=== PATIENT | female | born 1965 | race Caucasian/White ===

== ENCOUNTER 2017-11-09 03:21 | Outpatient (CLI) | payer OTHER | END 2017-11-09 23:59 | disposition home or self-care (01) | LOC: DIABETIC 03:21 | PROVIDERS: ATTEND Family Medicine | DX: E11.65 Type 2 diabetes mellitus with hyperglycemia (principal) | CPT/HCPCS: G0109 ==

== ENCOUNTER 2017-12-05 04:55 | Outpatient (CLI) | payer OTHER | END 2017-12-05 23:59 | disposition home or self-care (01) | LOC: DIABETIC 04:55 | PROVIDERS: ATTEND Family Medicine | DX: E11.9 Type 2 diabetes mellitus without complications (principal) | CPT/HCPCS: G0108 ==

== ENCOUNTER 2019-08-04 21:25 | Inpatient (IN) | payer OTHER ==
[~2019-08-04] VITALS: Ht 172.7 cm; Wt 83.8 kg
[2019-08-04] MEDS ORDERED: insulin regular, human 100 UNIT in normal saline 100ml IV soln 100 ML IV PRN ×2 (21:45)
[2019-08-04] MEDS ORDERED: proCHLORperazine 10 MG/2 ml inj IV ONE (21:45)
[2019-08-04] MEDS ORDERED: EMPA10TA PO (22:06)
[2019-08-04] MEDS ORDERED: INSU100V9 SQ (22:06)
[2019-08-04] MEDS ORDERED: ATOR10TA87 PO (22:06)
[2019-08-04] MEDS ORDERED: MAGN400C PO (22:06)
[2019-08-04] MEDS ORDERED: HUM7525 SQ (22:06)
[2019-08-04] MEDS ORDERED: TOPI25TA15 PO (22:06)
[2019-08-04] MEDS ORDERED: CHOL100046 PO (22:06)
--- NOTE | 2019-08-04 22:06 | NUR ---
PT AND FAMILY UNSURE OF MEDICATION DOSAGES/FREQUENCIES THAT PT TAKES AT HOME. COMPLETED MED REC ABLE AT THIS TIME.
[2019-08-04] MEDS ORDERED: normal saline 1000ML IV soln IVB ONE (22:10)
[2019-08-04] MEDS ORDERED: insulin regular, human 10 units/0.1 ml syringe IV ONE (22:10)
[2019-08-04] MEDS ORDERED: LORazepam 2 mg/ml vial IV ONE ×2 (22:10→22:40)
[2019-08-04] MEDS ORDERED: diphenhydrAMINE 50 mg/ml inj IV ONE (22:10)
[2019-08-04 22:13] LABS: BASOPHILS # (AUTO) 0.1 X10'3 (0-0.2); BASOPHILS % (AUTO) 0.3 % (0-1); EOSINOPHILS % (AUTO) 0 % (0-6); HEMOGLOBIN 14.1 g/dl (12.0-16.0); LYMPHOCYTES # (AUTO) 1.3 X10'3 (1.1-4.8); LYMPHOCYTES % (AUTO) 5.5 % (21-51); MEAN CORPUSCULAR HEMOGLOBIN 29.3 PG (27.0-31.0); MEAN CORPUSCULAR HGB CONC 32.1 g/dL (33.0-36.5); MEAN CORPUSCULAR VOLUME 91.3 FL (78-98); MEAN PLATELET VOLUME 8.4 FL (7.4-10.4); MONOCYTES # (AUTO) 1.8 X10'3 (0-0.9); MONOCYTES % (AUTO) 7.3 % (2-12); NEUTROPHILS # (AUTO) 21.1 X10'3 (1.8-7.7); NEUTROPHILS % (AUTO) 86.9 % (42-75); PLATELET COUNT 340 X10'3 (140-440); RED BLOOD COUNT 4.81 X10'6 (4.20-5.60); RED CELL DISTRIBUTION WIDTH 12.7 % (11.5-14.5); WHITE BLOOD COUNT 24.3 X10'3 (4.5-11.0)
[2019-08-04 22:15] LABS: ABG BASE EXCESS -24.5 mmol/L (-2.0-3.0); ABG HCO3 3.2 mmol/L (22.0-26.0); ABG OXYGEN SATURATION 98.1 % (95-98); ABG PO2 (T) 130.4 mmHg (83-108); ALLEN'S TEST Positive; FCOHb 0.5 % (0.5-1.5); FMetHb 0.5 % (0.3-1.12); FO2Hb 97.1 % (94-100); RESPIRATORY RATE (OBSERVED) 22 b/min; TOTAL HEMOGLOBIN 14.4 G/dl (12.0-16.0)
[2019-08-04 22:28] LABS: ALANINE AMINOTRANSFERASE 21 U/L (12-78); ALBUMIN 3.7 G/DL (3.4-5.0); ALBUMIN/GLOBULIN RATIO 1.2 (1.1-1.5); ALKALINE PHOSPHATASE 96 IU/L (46-116); ASPARTATE AMINO TRANSFERASE 14 U/L (10-37); BLOOD UREA NITROGEN 20 MG/DL (7-18); BUN/CREATININE RATIO 14.4 (6.6-38.0); CALCIUM 8.8 MG/DL (8.5-10.1); CHLORIDE 105 MMOL/L (99-107); CREATININE 1.39 MG/DL (0.40-0.90); MAGNESIUM 1.8 MG/DL (1.5-2.4); PHOSPHORUS 4.1 MG/DL (2.3-4.5); POTASSIUM 4.8 MMOL/L (3.5-5.1); SODIUM 139 MMOL/L (135-145); TOTAL PROTEIN 6.7 G/DL (6.4-8.2); eGFR 40 ML/MIN
[2019-08-04 22:32] LABS: ANION GAP 29 (8-16)
[2019-08-04 22:35] LABS: GLUCOSE 510 MG/DL (70-104)
[2019-08-04 22:36] LABS: TOTAL CARBON DIOXIDE < 5 MMOL/L (24-32)
[2019-08-04 22:50] LABS: TROPONIN I < 0.04 NG/ML (0.0-0.05)
--- NOTE | 2019-08-04 22:50 | NUR ---
Increased confusion and combativness, pt moved from room 1 to room 3, closer to NS. Dr Mortensen notified and he went to the bedside. MD aware of patients' mottling to her lower extremities. Pt receiving another bolus of NS per MD VO.
[2019-08-04] MEDS ORDERED: vancomycin inj 1,000 MG in normal saline 250ml IV soln 250 ML IV ONE (22:55)
[2019-08-04] MEDS ORDERED: vancomycin/NS 1 GM ADD-VANTAGE 250 ML IV ONE (22:58)
[2019-08-04 23:07] LABS: TOTAL CELLS COUNTED 100
[2019-08-04 23:08] LABS: PLATELET ESTIMATE NORMAL
[2019-08-04] MEDS ORDERED: normal saline 1000ml 1,000 ML IVB ONE (23:08)
--- NOTE | 2019-08-04 23:52 | NUR ---
PT CONTINUES TO BE VERY AGITATED. EYES CLOSED, MOVING HER ARMS AND HER LEGS AND ROLLING HER HEAD BACK AND FORTH WITH KUSSMAUL BREATHING. DR JOSÉ ORDERED K AND IV INSULIN TURNED OFF. SET UP FOR CENTRAL LINE.
[2019-08-04] MEDS: potassium Cl 10 mEq/100mL bag IV SCH (23:58)
[2019-08-05] VITALS (22 sets, daily range): BP systolic 101–141; BP diastolic 55–78
[2019-08-05] MEDS ORDERED: ketamine 50 mg/ml 10ml vial IV STA (00:24)
--- NOTE | 2019-08-05 00:25 | NUR ---
PT FIGHTING MD AND MOVING AND FIGHTING FOR CENTRAL LINE PLACEMENT.
--- NOTE | 2019-08-05 00:27 | NUR ---
DOUBLE CHECKED KETAMINE WITH OLGA SPANGLER RN
--- NOTE | 2019-08-05 00:34 | NUR ---
THE KETAMINE DIDN'T WORK. HOWEVER, THE MD WAS ABLE TO SUCESSFULLY GET THE CL.
[2019-08-05 00:44] LABS: ALANINE AMINOTRANSFERASE 11 U/L (12-78); ALBUMIN 1.6 G/DL (3.4-5.0); ALBUMIN/GLOBULIN RATIO 1.1 (1.1-1.5); ALKALINE PHOSPHATASE 47 IU/L (46-116); ASPARTATE AMINO TRANSFERASE 7 U/L (10-37); BILIRUBIN,TOTAL 0.4 MG/DL (0.1-1.0); BLOOD UREA NITROGEN 10 MG/DL (7-18); BUN/CREATININE RATIO 16.4 (6.6-38.0); CHLORIDE 125 MMOL/L (99-107); CREATININE 0.61 MG/DL (0.40-0.90); GLUCOSE 251 MG/DL (70-104); SODIUM 151 MMOL/L (135-145); eGFR > 90 ML/MIN
[2019-08-05] MEDS ORDERED: ketamine 50 mg/ml 10ml vial IV ONE (01:00)
[2019-08-05 01:01] LABS: POTASSIUM 4.3 MMOL/L (3.5-5.1)
[2019-08-05] MEDS ORDERED: normal saline 1000ml 1,000 ML IV PRN ×2 (01:02→01:05)
--- NOTE | 2019-08-05 01:02 | NUR ---
IN ROOM FOR PROCEDURE FOR MONIQUE
[2019-08-05 01:05] LABS: POTASSIUM 2.2 MMOL/L (3.5-5.1)
[2019-08-05] MEDS ORDERED: MESSAGE TO PHARMACY PO ONE ×2 (01:05→16:45)
[2019-08-05] MEDS ORDERED: acetaminophen 325mg tablet PO PRN (01:05)
[2019-08-05] MEDS ORDERED: dextrose ORAL solution 15 GM/59 ML bottle PO PRN ×4 (01:05→16:45)
[2019-08-05] MEDS ORDERED: insulin Lispro (HumaLOG) vial - multi-dose SQ SCH (01:05)
[2019-08-05] MEDS ORDERED: magnesium 2GM in 50ml NS 50 ML IV PRN (01:05)
[2019-08-05] MEDS ORDERED: sodium phosphate inj. 15 MMOL in dextrose 5%-water 150 ML IV PRN (01:05)
[2019-08-05] MEDS ORDERED: metoclopramide 5 mg/ml inj IV PRN (01:05)
[2019-08-05] MEDS ORDERED: sodium phosphate inj. 30 MMOL in dextrose 5%-water 250 ML IV PRN (01:05)
[2019-08-05] MEDS ORDERED: magnesium 4gm in 100ml NS 100 ML IV PRN (01:05)
[2019-08-05] MEDS ORDERED: dextrose 50%-water 50ml dispensing syringe IV PRN ×5 (01:05→16:45)
[2019-08-05] MEDS ORDERED: magnesium hydroxide 30ml (MOM) UD suspension PO PRN (01:05)
[2019-08-05] MEDS ORDERED: ondansetron/PF 4mg/2ml inj IV PRN (01:05)
[2019-08-05] MEDS ORDERED: glucagon, human recombinant 1mg kit SUBCUT PRN ×2 (01:05→16:45)
[2019-08-05] MEDS ORDERED: acetaminophen 650mg rectal suppository RC PRN (01:05)
[2019-08-05] MEDS ORDERED: ipratropium/albuterol 3ml nebule NEB PRN (01:05)
[2019-08-05] MEDS ORDERED: sodium bicarbonate (8.4%) inj. 75 MEQ in dextrose 5% water 500ml 500 ML IV SCH (01:05)
[2019-08-05 01:06] LABS: ANION GAP 21 (8-16)
[2019-08-05] MEDS ORDERED: ondansetron/PF 4mg/2ml inj IV ONE (01:10)
[2019-08-05] MEDS: potassium Cl 10 mEq/100mL bag IV SCH (01:12)
[2019-08-05 01:13] LABS: CALCIUM < 5.0 MG/DL (8.5-10.1); TOTAL CARBON DIOXIDE < 5 MMOL/L (24-32)
[2019-08-05 01:14] LABS: MAGNESIUM 0.8 MG/DL (1.5-2.4)
[2019-08-05] MEDS ORDERED: calcium chloride inj. 1,000 MG in normal saline 100ml IV soln 100 ML IV ONE (01:30)
[2019-08-05] MEDS ORDERED: magnesium 4gm in 100ml NS 100 ML IV ONE (01:30)
[2019-08-05] MEDS ORDERED: LORazepam 2 mg/ml vial IV ONE (01:45)
--- NOTE | 2019-08-05 01:45 | NUR ---
I have received report from Jeanne, ED RN and had the opportunity to ask questions and assume patient care.
[2019-08-05] MEDS ORDERED: sodium bicarbonate (8.4%) inj. 50 MEQ in dextrose 5% water 500ml 250 ML IV PRN (01:47)
[2019-08-05] MEDS ORDERED: potassium CL 20mEq in D5-1/2NS 1,000 ML IV PRN (01:47)
[2019-08-05] MEDS ORDERED: sodium bicarbonate (8.4%) inj. 100 MEQ in dextrose 5% water 500ml 500 ML IV PRN (01:47)
[2019-08-05 01:48] LABS: HEMOGLOBIN A1C 8.5 % (4.5-6.2)
[2019-08-05] MEDS ORDERED: insulin Lispro (HumaLOG) vial - multi-dose SQ PRN (01:50)
[2019-08-05] MEDS ORDERED: insulin regular, human 100 UNIT in normal saline 100ml IV soln 99 ML IV SCH ×2 (01:50)
[2019-08-05 01:56] LABS: CLARITY,URINE SLIGHTLY CLOUDY (Clear); COLOR,URINE YELLOW (Yellow); GLUCOSE, URINE 500 mg/dl (Neg); KETONES,URINE >=80 mg/dl (Neg); LEUKOCYTE ESTERASE ,URINE NEGATIVE (Neg); NITRITES, URINE NEGATIVE (Neg); OCCULT BLOOD,URINE MODERATE (Neg); PH,URINE 5.5 (4.8-8.0); PROTEIN,URINE 30 mg/dl (Neg); UROBILINOGEN,URINE 0.2 E.U/dL (0.2-1.0)
[2019-08-05 01:58] LABS: UA COLLECTION TYPE FOLEY CATH
[2019-08-05 02:03] LABS: BACTERIA,URINE FEW /HPF (Neg); COARSE GRANULAR CAST 0-3 /LPF (NEGATIVE); RBC,URINE 0-2 /HPF (0-2); SQUAMOUS EPITHELIAL CELL,UR FEW /LPF (FEW); WBC,URINE NONE SEEN /HPF (0-4)
[2019-08-05 02:06] LABS: URINE AMPHETAMINE SCREEN NEGATIVE (Neg); URINE BARBITUATE SCREEN NEGATIVE (Neg); URINE BENZODIAZEPINES SCREEN NEGATIVE (Neg); URINE CANNABINOID SCREEN NEGATIVE (Neg); URINE COCAINE SCREEN NEGATIVE (Neg); URINE METHADONE SCREEN NEGATIVE (Neg); URINE OPIATE SCREEN NEGATIVE (Neg); URINE PHENCYCLIDINE SCREEN NEGATIVE (Neg)
--- NOTE | 2019-08-05 02:30 | NUR ---
PT arrived to via gurney. PT transferred to bed using sideboard. PT placed on bedside monitor. BP is stable, HR is 120's. PT is sleeping/snoring. PT was sedated down in ED d/t not being able to follow commands. PT has a Thora-vent to RT chest. CVL to RT groin. Johnson in place draining to gravity. Bed is locked and low. Bilat soft wrist restraints in place and secure.
[2019-08-05 03:06] LABS: BASOPHILS # (AUTO) 0.1 X10'3 (0-0.2); BASOPHILS % (AUTO) 0.6 % (0-1); EOSINOPHILS % (AUTO) 0 % (0-6); HEMATOCRIT 37.3 % (35.0-45.0); HEMOGLOBIN 12.5 g/dl (12.0-16.0); LYMPHOCYTES # (AUTO) 2.6 X10'3 (1.1-4.8); LYMPHOCYTES % (AUTO) 10.6 % (21-51); MEAN CORPUSCULAR HEMOGLOBIN 29.9 PG (27.0-31.0); MEAN CORPUSCULAR HGB CONC 33.5 g/dL (33.0-36.5); MEAN CORPUSCULAR VOLUME 89.5 FL (78-98); MEAN PLATELET VOLUME 8.3 FL (7.4-10.4); MONOCYTES # (AUTO) 2.3 X10'3 (0-0.9); MONOCYTES % (AUTO) 9.6 % (2-12); NEUTROPHILS # (AUTO) 19.2 X10'3 (1.8-7.7); NEUTROPHILS % (AUTO) 79.2 % (42-75); PLATELET COUNT 266 X10'3 (140-440); RED BLOOD COUNT 4.17 X10'6 (4.20-5.60); RED CELL DISTRIBUTION WIDTH 12.6 % (11.5-14.5); WHITE BLOOD COUNT 24.3 X10'3 (4.5-11.0)
[2019-08-05 03:23] LABS: PARTIAL THROMBOPLASTIN TIME 25 SECONDS (22-32)
[2019-08-05 03:30] LABS: ALANINE AMINOTRANSFERASE 20 U/L (12-78); ALBUMIN 3.1 G/DL (3.4-5.0); ALBUMIN/GLOBULIN RATIO 1.1 (1.1-1.5); ALKALINE PHOSPHATASE 77 IU/L (46-116); ASPARTATE AMINO TRANSFERASE 11 U/L (10-37); BILIRUBIN,TOTAL 0.7 MG/DL (0.1-1.0); BLOOD UREA NITROGEN 15 MG/DL (7-18); BUN/CREATININE RATIO 11.7 (6.6-38.0); CALCIUM 7.7 MG/DL (8.5-10.1); CREATININE 1.28 MG/DL (0.40-0.90); GLUCOSE 256 MG/DL (70-104); MAGNESIUM 1.6 MG/DL (1.5-2.4); PHOSPHORUS 1.4 MG/DL (2.3-4.5); TOTAL PROTEIN 5.8 G/DL (6.4-8.2); eGFR 44 ML/MIN
[2019-08-05 03:51] LABS: ANION GAP 20 (8-16); CHLORIDE 115 MMOL/L (99-107); POTASSIUM 4.6 MMOL/L (3.5-5.1); SODIUM 143 MMOL/L (135-145)
[2019-08-05 04:00] LABS: ABG BASE EXCESS -17.8 mmol/L (-2.0-3.0); ABG HCO3 8.6 mmol/L (22.0-26.0); ABG OXYGEN SATURATION 97.6 % (95-98); ABG PCO2 (T) 24.1 mmHg (35.0-45.0); ABG PH (T) 7.174 (7.350-7.450); ALLEN'S TEST Positive; FCOHb 0.3 % (0.5-1.5); FLOW 2 L/min; FMetHb 0.3 % (0.3-1.12); PATIENT TEMPERATURE 37.8; RESPIRATORY RATE (OBSERVED) 22 b/min; TOTAL HEMOGLOBIN 13.5 G/dl (12.0-16.0)
[2019-08-05 04:05] LABS: PLATELET ESTIMATE NORMAL; TOTAL CELLS COUNTED 100
[2019-08-05 04:05] LABS: OXYGEN SATURATION (MIXED VEN) 75.1 % (60-80); PO2 MIXED VENOUS (TEMP COR) 34.3 mmHg (35-46)
--- NOTE | 2019-08-05 05:00 | NUR ---
PT continues to sleep. VSS. Bed is locked and low. Bilat soft wrist restraints remain in place and secure. Will continue to monitor.
--- NOTE | 2019-08-05 06:55 | NUR ---
Problems reprioritized. Patient report given, questions answered & plan of care reviewed with Yesica MOORE.
[2019-08-05] MEDS: atorvastatin 10mg tablet PO SCH (08:00)
[2019-08-05] MEDS: enoxaparin 40mg/0.4ml syringe SUBCUT SCH (08:00)
[2019-08-05] MEDS: pantoprazole 40 MG vial IV SCH (08:00)
[2019-08-05] MEDS: CefTRIAXone 2gm/D5W 50ml 50 ML IV SCH (08:00)
[2019-08-05] MEDS: docusate sod 100mg capsule PO SCH ×2 (08:00→19:24)
[2019-08-05] MEDS ORDERED: VANCOmycin 1250MG/NS 250ml Bag 250 ML IV SCH (10:00)
[2019-08-05 10:33] LABS: ALANINE AMINOTRANSFERASE 20 U/L (12-78); ALBUMIN/GLOBULIN RATIO 1.2 (1.1-1.5); ALKALINE PHOSPHATASE 72 IU/L (46-116); ANION GAP 9 (8-16); ASPARTATE AMINO TRANSFERASE 11 U/L (10-37); BILIRUBIN,TOTAL 0.6 MG/DL (0.1-1.0); BLOOD UREA NITROGEN 11 MG/DL (7-18); BUN/CREATININE RATIO 10.3 (6.6-38.0); CALCIUM 8.2 MG/DL (8.5-10.1); CHLORIDE 117 MMOL/L (99-107); CREATININE 1.07 MG/DL (0.40-0.90); GLUCOSE 198 MG/DL (70-104); MAGNESIUM 1.7 MG/DL (1.5-2.4); POTASSIUM 3.6 MMOL/L (3.5-5.1); SODIUM 144 MMOL/L (135-145); TOTAL CARBON DIOXIDE 17.9 MMOL/L (24-32); TOTAL PROTEIN 5.5 G/DL (6.4-8.2); eGFR 54 ML/MIN
[2019-08-05] MEDS: VANCOmycin 1250MG/NS 250ml Bag 250 ML IV SCH ×2 (11:26→22:18)
--- NOTE | 2019-08-05 12:33 | NUR ---
DM Consult: A1C 8.5. Pt admit from [place] for intractable N/V, hyperglycemia, ketones negative w/ elevated anion gap and moderate acetone levels. Pt prior T2DM now insulin dependent per MD note. Pt combative on admit and currently AOx1 on sedation. Metabolic encephalopathy w/ metabolic acidosis per MD note; pt takes SGLT2 inhibitors at home and likely will need to stop per MD note. GLU down to 130 from 436 on insulin w/ Phos 1.0; receiving placement today per RN. Pt remains NPO at this time. Will need DM ed once stable prior to d/c. Will monitor for additional protein needs as diet advances. Rec: 1. advance diet per MD to carb controlled 2. monitor for additional protein need once diet advances 3. DM ed once stable prior to d/c 4. weekly wts Addendum: 08/05/19 at [address] Amended: Links added.
[2019-08-05 16:29] LABS: ALANINE AMINOTRANSFERASE 18 U/L (12-78); ALBUMIN 2.9 G/DL (3.4-5.0); ALBUMIN/GLOBULIN RATIO 1.2 (1.1-1.5); ALKALINE PHOSPHATASE 70 IU/L (46-116); ANION GAP 7 (8-16); ASPARTATE AMINO TRANSFERASE 11 U/L (10-37); BILIRUBIN,TOTAL 0.5 MG/DL (0.1-1.0); BLOOD UREA NITROGEN 12 MG/DL (7-18); BUN/CREATININE RATIO 12.9 (6.6-38.0); CALCIUM 8.4 MG/DL (8.5-10.1); CHLORIDE 119 MMOL/L (99-107); CREATININE 0.93 MG/DL (0.40-0.90); GLUCOSE 113 MG/DL (70-104); POTASSIUM 3.3 MMOL/L (3.5-5.1); SODIUM 147 MMOL/L (135-145); TOTAL CARBON DIOXIDE 20.8 MMOL/L (24-32); TOTAL PROTEIN 5.3 G/DL (6.4-8.2); eGFR 63 ML/MIN
--- NOTE | 2019-08-05 18:34 | NUR ---
Patient in room [facility] 2006. I have received report from Yesica Nazario RN and had the opportunity to ask questions and assume patient care. Addendum: 08/06/19 at 0625 by Yohan Ko RN Yesica Gonzalez RN is the correct name not Yesica Nazario
[2019-08-05] MEDS: lactobacillus rhamnosus 10,000 MMU CELLS/CAPSULE PO SCH (19:23)
[2019-08-05] MEDS ORDERED: insulin glargine (Lantus) pen - multi-dose SQ SCH (21:00)
[2019-08-05] MEDS: insulin glargine (Lantus) pen - multi-dose SQ SCH (21:16)
[2019-08-05 21:42] LABS: ALBUMIN 2.7 G/DL (3.4-5.0); ANION GAP 7 (8-16); BLOOD UREA NITROGEN 11 MG/DL (7-18); BUN/CREATININE RATIO 12.2 (6.6-38.0); CALCIUM 8.5 MG/DL (8.5-10.1); CHLORIDE 113 MMOL/L (99-107); GLUCOSE 153 MG/DL (70-104); POTASSIUM 3.2 MMOL/L (3.5-5.1); SODIUM 142 MMOL/L (135-145); TOTAL CARBON DIOXIDE 22.4 MMOL/L (24-32); eGFR 66 ML/MIN
[2019-08-05] MEDS: potassium Cl 20mEq/100mL bag 100 ML IV PRN ×2 (22:18→23:30)
[2019-08-05] MEDS: acetaminophen 325mg tablet PO PRN (23:44)
[2019-08-06] VITALS (16 sets, daily range): BP systolic 131–162; BP diastolic 69–100
[2019-08-06 03:08] LABS: BASOPHILS % (AUTO) 0.5 % (0-1); EOSINOPHILS % (AUTO) 0.4 % (0-6); HEMATOCRIT 34.4 % (35.0-45.0); HEMOGLOBIN 11.9 g/dl (12.0-16.0); LYMPHOCYTES # (AUTO) 1.5 X10'3 (1.1-4.8); LYMPHOCYTES % (AUTO) 16.9 % (21-51); MEAN CORPUSCULAR HEMOGLOBIN 30.4 PG (27.0-31.0); MEAN CORPUSCULAR HGB CONC 34.5 g/dL (33.0-36.5); MEAN CORPUSCULAR VOLUME 88.1 FL (78-98); MEAN PLATELET VOLUME 8.1 FL (7.4-10.4); MONOCYTES # (AUTO) 0.7 X10'3 (0-0.9); MONOCYTES % (AUTO) 7.8 % (2-12); NEUTROPHILS # (AUTO) 6.8 X10'3 (1.8-7.7); NEUTROPHILS % (AUTO) 74.4 % (42-75); PLATELET COUNT 124 X10'3 (140-440); RED BLOOD COUNT 3.91 X10'6 (4.20-5.60); RED CELL DISTRIBUTION WIDTH 12.5 % (11.5-14.5); WHITE BLOOD COUNT 9.1 X10'3 (4.5-11.0)
[2019-08-06 03:20] LABS: ALANINE AMINOTRANSFERASE 17 U/L (12-78); ALBUMIN 2.8 G/DL (3.4-5.0); ALBUMIN/GLOBULIN RATIO 1.2 (1.1-1.5); ALKALINE PHOSPHATASE 70 IU/L (46-116); ANION GAP 11 (8-16); ASPARTATE AMINO TRANSFERASE 13 U/L (10-37); BILIRUBIN,TOTAL 0.9 MG/DL (0.1-1.0); BLOOD UREA NITROGEN 9 MG/DL (7-18); CALCIUM 8.7 MG/DL (8.5-10.1); CHLORIDE 112 MMOL/L (99-107); CREATININE 0.82 MG/DL (0.40-0.90); GLUCOSE 184 MG/DL (70-104); MAGNESIUM 1.5 MG/DL (1.5-2.4); PHOSPHORUS 1.6 MG/DL (2.3-4.5); POTASSIUM 3.7 MMOL/L (3.5-5.1); SODIUM 141 MMOL/L (135-145); TOTAL PROTEIN 5.2 G/DL (6.4-8.2); eGFR 73 ML/MIN
--- NOTE | 2019-08-06 06:25 | NUR ---
Problems reprioritized. Patient report given, questions answered & plan of care reviewed with Yesica Gonzalez RN.
[2019-08-06] MEDS: lactobacillus rhamnosus 10,000 MMU CELLS/CAPSULE PO SCH ×2 (07:21→21:18)
[2019-08-06] MEDS: atorvastatin 10mg tablet PO SCH (07:21)
[2019-08-06] MEDS: aspirin 81mg tablet.DR PO SCH (07:21)
[2019-08-06] MEDS: docusate sod 100mg capsule PO SCH ×2 (07:22→20:00)
[2019-08-06] MEDS: CefTRIAXone 2gm/D5W 50ml 50 ML IV SCH (07:22)
[2019-08-06] MEDS: pantoprazole 40 MG vial IV SCH (07:22)
[2019-08-06] MEDS: enoxaparin 40mg/0.4ml syringe SUBCUT SCH (07:23)
[2019-08-06 13:03] LABS: CHOL/HDL RATIO 2.4 (0.00-4.99); CHOLESTEROL 126 MG/DL (0-200); HDL CHOLESTEROL 52 MG/DL (35-60); LDL CHOLESTEROL 64 MG/DL (50-100); TRIGLYCERIDES 49 MG/DL (20-135)
[2019-08-06] MEDS: insulin Lispro (HumaLOG) vial - multi-dose SQ SCH ×2 (13:42→19:17)
--- NOTE | 2019-08-06 15:14 | NUR ---
DM education. Patient seen at bedside and given written DM education handout and referral to outpatient DM education class. Patient reports first diagnosis of type 2 diabetes in 2017 by means of hair follicle test, afterwards patient had blood work done that revealed insulin dependent diabetes. Since then pt has been taking night time long acting insulin and reports short acting meal coverage for lunch and dinner per her primary MDs recommendations. Patient reports she has received some pamphlets and books but reports no education or training on how to dose her insulin using pre meal blood glucose and carb consumed. Encouraged patient to meet with CDE for specifics on dosing insulin for meals. Patient reports nausea, vomiting, not eating well, and not giving insulin while she was not feeling well. Discussed sick day rules with patient and provided written handout. Discussed types of carbs, serving sizes, and carb counting. Addendum: 08/06/19 at [address] Amended: Links added.
--- NOTE | 2019-08-06 18:00 | NUR ---
Problems reprioritized. Patient report given, questions answered & plan of care reviewed with Roslyn MOORE.
--- NOTE | 2019-08-06 18:20 | NUR ---
Patient in room [facility]. I have received report from Isatu MOORE and had the opportunity to ask questions and assume patient care.
--- NOTE | 2019-08-06 20:00 | NUR ---
Patient has a thoravent to R chest. Addendum: 08/07/19 at 0433 by Roslyn Murrell RN Amended: Links added.
[2019-08-06] MEDS: insulin glargine (Lantus) pen - multi-dose SQ SCH (20:54)
[2019-08-06] MEDS: acetaminophen 325mg tablet PO PRN (21:19)
[2019-08-06] MEDS ORDERED: VANCOMYCIN LEVEL IV ONE (21:30)
--- NOTE | 2019-08-06 23:08 | NUR ---
No trough drawn as no longer on vanco.
[2019-08-07] VITALS: BP 135/88
[2019-08-07 05:20] LABS: BASOPHILS % (AUTO) 0.7 % (0-1); EOSINOPHILS # (AUTO) 0.1 X10'3 (0-0.9); EOSINOPHILS % (AUTO) 2.5 % (0-6); HEMATOCRIT 36.2 % (35.0-45.0); HEMOGLOBIN 12.6 g/dl (12.0-16.0); LYMPHOCYTES # (AUTO) 1.8 X10'3 (1.1-4.8); LYMPHOCYTES % (AUTO) 33.8 % (21-51); MEAN CORPUSCULAR HEMOGLOBIN 30.4 PG (27.0-31.0); MEAN CORPUSCULAR HGB CONC 34.8 g/dL (33.0-36.5); MEAN CORPUSCULAR VOLUME 87.5 FL (78-98); MEAN PLATELET VOLUME 8.3 FL (7.4-10.4); MONOCYTES # (AUTO) 0.4 X10'3 (0-0.9); MONOCYTES % (AUTO) 7.4 % (2-12); NEUTROPHILS % (AUTO) 55.6 % (42-75); PLATELET COUNT 128 X10'3 (140-440); RED BLOOD COUNT 4.14 X10'6 (4.20-5.60); RED CELL DISTRIBUTION WIDTH 12.2 % (11.5-14.5); WHITE BLOOD COUNT 5.5 X10'3 (4.5-11.0)
[2019-08-07 05:29] LABS: ALANINE AMINOTRANSFERASE 24 U/L (12-78); ALBUMIN 2.9 G/DL (3.4-5.0); ALBUMIN/GLOBULIN RATIO 1.1 (1.1-1.5); ALKALINE PHOSPHATASE 78 IU/L (46-116); ANION GAP 7 (8-16); ASPARTATE AMINO TRANSFERASE 20 U/L (10-37); BILIRUBIN,TOTAL 1.9 MG/DL (0.1-1.0); BLOOD UREA NITROGEN 9 MG/DL (7-18); BUN/CREATININE RATIO 12.5 (6.6-38.0); CALCIUM 8.6 MG/DL (8.5-10.1); CHLORIDE 105 MMOL/L (99-107); CREATININE 0.72 MG/DL (0.40-0.90); GLUCOSE 187 MG/DL (70-104); MAGNESIUM 1.5 MG/DL (1.5-2.4); PHOSPHORUS 2.7 MG/DL (2.3-4.5); SODIUM 139 MMOL/L (135-145); TOTAL CARBON DIOXIDE 26.7 MMOL/L (24-32); TOTAL PROTEIN 5.6 G/DL (6.4-8.2); eGFR 85 ML/MIN
[2019-08-07 06:09] LABS: POTASSIUM 2.9 MMOL/L (3.5-5.1)
[2019-08-07] MEDS ORDERED: magnesium Cl slow-release 64mg tablet PO PRN (06:20)
[2019-08-07] MEDS ORDERED: potassium CL 10mEq/100ml bag 100 ML IV PRN (06:20)
[2019-08-07] MEDS ORDERED: magnesium 4gm in 100ml NS 100 ML IV PRN (06:20)
[2019-08-07] MEDS ORDERED: potassium Cl 20 mEq SR tablet PO PRN (06:20)
--- NOTE | 2019-08-07 06:40 | NUR ---
Patient in room [facility]. I have received report from Roslyn MOORE and had the opportunity to ask questions and assume patient care.
--- NOTE | 2019-08-07 06:55 | NUR ---
Problems reprioritized. Patient report given, questions answered & plan of care reviewed with Isatu MOORE.
[2019-08-07] MEDS: lactobacillus rhamnosus 10,000 MMU CELLS/CAPSULE PO SCH ×2 (07:29→19:44)
[2019-08-07] MEDS: aspirin 81mg tablet.DR PO SCH (07:29)
[2019-08-07] MEDS: atorvastatin 10mg tablet PO SCH (07:29)
[2019-08-07] MEDS: docusate sod 100mg capsule PO SCH ×2 (07:30→19:44)
[2019-08-07] MEDS: potassium Cl 20 mEq SR tablet PO PRN ×3 (07:31→19:44)
[2019-08-07] MEDS: pantoprazole 40mg Tablet.DR PO SCH (07:45)
[2019-08-07 08:00] VITALS: BP 152/100
[2019-08-07] MEDS: enoxaparin 40mg/0.4ml syringe SUBCUT SCH (08:00)
[2019-08-07] MEDS: insulin Lispro (HumaLOG) vial - multi-dose SQ SCH ×3 (09:48→19:52)
[2019-08-07] MEDS ORDERED: FLU VACC QS 2019-20 (6 MOS UP) 60 MCG/0.5 ML VIAL IMVAC ONE (10:00)
[2019-08-07 12:00] VITALS: BP 170/98
[2019-08-07 16:39] LABS: D-DIMER 1.59 MG/L FEU (0-0.50)
[2019-08-07] MEDS ORDERED: aspirin 325mg tablet PO STA (16:58)
--- NOTE | 2019-08-07 17:07 | NUR ---
RN consult: RN called RD; pt requests RD visit for DM ed reinforcement. Pt/family seen by RD for verbal DM ed reinforcement specifically reviewing snack options, portion sizing, traveling/fast-food optimal choices, hydration, and sick day guidelines. Pt reports no further DM concerns at this time. PO 50% avg meals so far. R upper thoravent in place for spontaneous pneumothorax w/ lung now well expanded per MD note. LBM 08/04. Will continue to monitor. Recommend: 1. Continue carb controlled diet 2. wt per rx Addendum: 08/07/19 at [address] Amended: Links added.
[2019-08-07] MEDS ORDERED: aspirin 325mg tablet ONE (17:11)
[2019-08-07] MEDS: VANCOmycin 1250MG/NS 250ml Bag 250 ML IV SCH ×2 (17:28→23:41)
[2019-08-07 20:00] VITALS: BP 136/84
[2019-08-07] MEDS: insulin glargine (Lantus) pen - multi-dose SQ SCH (21:43)
[2019-08-07] MEDS: Melatonin 3mg tablet PO PRN (21:46)
[2019-08-07 23:57] VITALS: BP_SYST 137; BP_SYST 147; BP_DIAS 83
[2019-08-08 05:56] LABS: BASOPHILS % (AUTO) 0.9 % (0-1); EOSINOPHILS # (AUTO) 0.3 X10'3 (0-0.9); EOSINOPHILS % (AUTO) 5.8 % (0-6); HEMATOCRIT 36.1 % (35.0-45.0); HEMOGLOBIN 12.6 g/dl (12.0-16.0); LYMPHOCYTES # (AUTO) 1.7 X10'3 (1.1-4.8); LYMPHOCYTES % (AUTO) 35.3 % (21-51); MEAN CORPUSCULAR HEMOGLOBIN 30.5 PG (27.0-31.0); MEAN CORPUSCULAR HGB CONC 34.9 g/dL (33.0-36.5); MEAN CORPUSCULAR VOLUME 87.5 FL (78-98); MEAN PLATELET VOLUME 8.4 FL (7.4-10.4); MONOCYTES # (AUTO) 0.3 X10'3 (0-0.9); MONOCYTES % (AUTO) 6.4 % (2-12); NEUTROPHILS # (AUTO) 2.4 X10'3 (1.8-7.7); NEUTROPHILS % (AUTO) 51.6 % (42-75); PLATELET COUNT 112 X10'3 (140-440); RED BLOOD COUNT 4.13 X10'6 (4.20-5.60); RED CELL DISTRIBUTION WIDTH 12.4 % (11.5-14.5); WHITE BLOOD COUNT 4.7 X10'3 (4.5-11.0)
[2019-08-08 05:58] LABS: ALANINE AMINOTRANSFERASE 16 U/L (12-78); ALBUMIN 2.7 G/DL (3.4-5.0); ALKALINE PHOSPHATASE 79 IU/L (46-116); ANION GAP 8 (8-16); ASPARTATE AMINO TRANSFERASE 12 U/L (10-37); BILIRUBIN,TOTAL 1.4 MG/DL (0.1-1.0); BLOOD UREA NITROGEN 10 MG/DL (7-18); BUN/CREATININE RATIO 17.5 (6.6-38.0); CALCIUM 8.7 MG/DL (8.5-10.1); CHLORIDE 108 MMOL/L (99-107); CREATININE 0.57 MG/DL (0.40-0.90); GLUCOSE 202 MG/DL (70-104); POTASSIUM 3.7 MMOL/L (3.5-5.1); SODIUM 145 MMOL/L (135-145); TOTAL PROTEIN 5.5 G/DL (6.4-8.2); eGFR > 90 ML/MIN
[2019-08-08 06:04] LABS: MAGNESIUM 1.6 MG/DL (1.5-2.4); PHOSPHORUS 3.9 MG/DL (2.3-4.5)
--- NOTE | 2019-08-08 06:43 | NUR ---
Problems reprioritized. Patient report given, questions answered & plan of care reviewed with Nirmala MOORE.
[2019-08-08] MEDS: pantoprazole 40mg Tablet.DR PO SCH (07:38)
[2019-08-08 08:00] VITALS: BP 155/90
[2019-08-08] MEDS: enoxaparin 40mg/0.4ml syringe SUBCUT SCH (08:00)
[2019-08-08] MEDS: docusate sod 100mg capsule PO SCH ×2 (08:27→19:19)
[2019-08-08] MEDS: aspirin 81mg tablet.DR PO SCH (08:27)
[2019-08-08] MEDS: atorvastatin 10mg tablet PO SCH (08:28)
[2019-08-08] MEDS: lactobacillus rhamnosus 10,000 MMU CELLS/CAPSULE PO SCH ×2 (08:28→19:19)
[2019-08-08] MEDS: VANCOmycin 1250MG/NS 250ml Bag 250 ML IV SCH ×2 (08:29→16:25)
[2019-08-08] MEDS: insulin Lispro (HumaLOG) vial - multi-dose SQ SCH ×3 (08:43→19:23)
[2019-08-08 11:00] VITALS: BP 143/85
[2019-08-08] MEDS ORDERED: VANCOMYCIN LEVEL IV ONE (15:30)
[2019-08-08 16:13] VITALS: BP 149/81
--- NOTE | 2019-08-08 18:53 | NUR ---
Patient in room [facility]. I have received report from Nirmala MOORE and had the opportunity to ask questions and assume patient care.
--- NOTE | 2019-08-08 19:41 | NUR ---
Problems reprioritized. Patient report given, questions answered & plan of care reviewed with Bob RN.
[2019-08-08 20:00] VITALS: BP 158/96
[2019-08-08] MEDS: Melatonin 3mg tablet PO PRN (21:04)
[2019-08-08] MEDS: insulin glargine (Lantus) pen - multi-dose SQ SCH (21:12)
[2019-08-09] VITALS: BP 133/75
[2019-08-09] MEDS: VANCOmycin 1250MG/NS 250ml Bag 250 ML IV SCH ×2 (00:23→08:13)
[2019-08-09] MEDS: acetaminophen 325mg tablet PO PRN (02:52)
--- NOTE | 2019-08-09 06:44 | NUR ---
Problems reprioritized. Patient report given, questions answered & plan of care reviewed with Pam MOORE.
--- NOTE | 2019-08-09 06:57 | NUR ---
Patient in room [facility]. I have received report from OSCAR Tran and had the opportunity to ask questions and assume patient care.
[2019-08-09 07:00] VITALS: BP 95/41
[2019-08-09 07:00] LABS: BASOPHILS # (AUTO) 0.1 X10'3 (0-0.2); EOSINOPHILS # (AUTO) 0.3 X10'3 (0-0.9); EOSINOPHILS % (AUTO) 6.2 % (0-6); HEMATOCRIT 34.1 % (35.0-45.0); LYMPHOCYTES # (AUTO) 1.7 X10'3 (1.1-4.8); LYMPHOCYTES % (AUTO) 32.8 % (21-51); MEAN CORPUSCULAR HEMOGLOBIN 30.5 PG (27.0-31.0); MEAN CORPUSCULAR HGB CONC 35.2 g/dL (33.0-36.5); MEAN CORPUSCULAR VOLUME 86.7 FL (78-98); MEAN PLATELET VOLUME 9.1 FL (7.4-10.4); MONOCYTES # (AUTO) 0.4 X10'3 (0-0.9); MONOCYTES % (AUTO) 7.9 % (2-12); NEUTROPHILS # (AUTO) 2.7 X10'3 (1.8-7.7); NEUTROPHILS % (AUTO) 52.1 % (42-75); PLATELET COUNT 138 X10'3 (140-440); RED BLOOD COUNT 3.94 X10'6 (4.20-5.60); WHITE BLOOD COUNT 5.2 X10'3 (4.5-11.0)
[2019-08-09 07:06] LABS: ALANINE AMINOTRANSFERASE 14 U/L (12-78); ALBUMIN 2.7 G/DL (3.4-5.0); ALKALINE PHOSPHATASE 76 IU/L (46-116); ANION GAP 7 (8-16); ASPARTATE AMINO TRANSFERASE 11 U/L (10-37); BILIRUBIN,TOTAL 1.1 MG/DL (0.1-1.0); BLOOD UREA NITROGEN 9 MG/DL (7-18); CALCIUM 8.7 MG/DL (8.5-10.1); CHLORIDE 104 MMOL/L (99-107); GLUCOSE 119 MG/DL (70-104); MAGNESIUM 1.6 MG/DL (1.5-2.4); POTASSIUM 3.2 MMOL/L (3.5-5.1); SODIUM 141 MMOL/L (135-145); TOTAL CARBON DIOXIDE 30.1 MMOL/L (24-32); TOTAL PROTEIN 5.5 G/DL (6.4-8.2); eGFR > 90 ML/MIN
[2019-08-09] MEDS: pantoprazole 40mg Tablet.DR PO SCH (08:10)
[2019-08-09] MEDS: docusate sod 100mg capsule PO SCH (08:10)
[2019-08-09] MEDS: lactobacillus rhamnosus 10,000 MMU CELLS/CAPSULE PO SCH (08:10)
[2019-08-09] MEDS: atorvastatin 10mg tablet PO SCH (08:10)
[2019-08-09] MEDS: aspirin 81mg tablet.DR PO SCH (08:10)
[2019-08-09] MEDS: enoxaparin 40mg/0.4ml syringe SUBCUT SCH (08:15)
[2019-08-09] MEDS: insulin Lispro (HumaLOG) vial - multi-dose SQ SCH (08:31)
[2019-08-09] MEDS ORDERED: LEVO500T2 PO (09:58)
[2019-08-09] MEDS ORDERED: FLU VACC QS 2019-20 (6 MOS UP) 60 MCG/0.5 ML VIAL IMVAC ONE ×3 (10:00→11:45)
[2019-08-09 11:30] VITALS: BP 145/86
--- NOTE | 2019-08-09 12:20 | NUR ---
Dressing to right chest changed per Dr Salas's verbal order. Occlusive dressing with vaseline gauze, sterile 2x2 gauze, and 4x4 gauze covered with tegaderm. Pt instructed to leave in place until tomorrow, when it may be removed.
--- NOTE | 2019-08-09 12:40 | NUR ---
Discussed all patient discharge instructions with patient and . Extensive diabetic education provided to pt and , medications reviewed, instructions and order provided for BMP follow-up lab draw. Pt to follow up with Dr. Jean-Baptiste. Medications called into [facility] on [address]. 2 IVs D/C'd, cannulas intact. Escorted pt out of hospital. Pt discharged to home with all belongings.
--- NOTE | 2019-08-09 13:48 | NUR ---
Student documentation: I have reviewed and agree with all interventions, assessments performed and documented by SN Cassidy.
== END 2019-08-09 12:35 | disposition home or self-care (01) | DRG 871 ==
LOC: ER 21:27 → ED HOLD 08-05 01:02 → CICU 2S 08-05 02:05 → SUR 3N 08-06 16:40
PROVIDERS: ADMIT Internal Medicine Critical Care Medicine; ATTEND Internal Medicine Critical Care Medicine
PROC: 06HY33Z Insertion of Infusion Device into Lower Vein, Percutaneous Approach (ICD-10-PCS; principal; 2019-08-04)
PROC: 0W9930Z Drainage of Right Pleural Cavity with Drainage Device, Percutaneous Approach (ICD-10-PCS; 2019-08-04)
PROC: 3E02340 Introduction of Influenza Vaccine into Muscle, Percutaneous Approach (ICD-10-PCS; 2019-08-09)
DX: A41.9 Sepsis, unspecified organism (principal); E10.10 Type 1 diabetes mellitus with ketoacidosis without coma; G93.41 Metabolic encephalopathy; J93.9 Pneumothorax, unspecified; E83.51 Hypocalcemia; E78.5 Hyperlipidemia, unspecified; E83.42 Hypomagnesemia; E86.0 Dehydration; E87.6 Hypokalemia; F41.9 Anxiety disorder, unspecified; R07.9 Chest pain, unspecified; Z23 Encounter for immunization; Z79.899 Other long term (current) drug therapy; Z79.4 Long term (current) use of insulin
CPT/HCPCS: 36415; 36556; 36600; 71045; 80048; 80053; 80061; 80202; 80305; 81001; 82009; 82330; 82803; 82810; 82948; 83036; 83605; 83735; 84100; 84132; 84145; 84443; 84484; 85018; 85025; 85379; 85610; 85730; 87040; 87081; 93005; 93306; 94760; 96366; 96368; 96375; 96376; 97110; 97112; 97116; 97161; 97530; 99291; 99292; C9113; G0378; J0696; J0780; J1200; J1650; J1815; J2060; J2405; J3370; J3480; J7050; J7060; Q2037

== ENCOUNTER 2019-11-22 02:04 | Outpatient (CLI) | payer OTHER ==
[~2019-11-22 02:04] MED LIST: ATOR10TA87 PO; CHOL100046 PO; EMPA10TA PO; HUM7525 SQ; INSU100V9 SQ; MAGN400C PO; TOPI25TA15 PO
== END 2019-11-22 23:59 | disposition home or self-care (01) ==
LOC: DIABETIC 02:04
PROVIDERS: ATTEND Specialist
DX: E10.9 Type 1 diabetes mellitus without complications (principal)
CPT/HCPCS: G0108